=== PATIENT | female | born 1950 | race Caucasian/White ===

== ENCOUNTER → 2019-09-21 | Outpatient (CLI) | payer MEDICARE ==
--- NOTE | 2019-09-21 09:39 | BD ---
EXAMINATION TYPE: Axial Bone Density DATE OF EXAM: 09/21/2019 COMPARISON: NONE CLINICAL HISTORY: Height: 5 FT 5 3/4 IN Weight: 195 FRAX RISK QUESTIONS: Alcohol (3 or more units per day): NO Family History (Parent hip fracture): YES Glucocorticoids (More than 3mos): NO (Ex: prednisone, prednisolone, methylprednisolone, dexamethasone, and hydrocortisone). History of Fracture in Adulthood: YES Secondary Osteoporosis: 1. Type 1 Diabetes: NO 2. Hyperthyroidism: NO 3. Menopause before 45: YES 4. Malnutrition: NO 5. Chronic liver disease: NO Rheumatoid Arthritis: NO Current Tobacco Use: NO RISK FACTORS HISTORY OF: Surgery to Spine/Hip(right/left)/Wrist (right/left): NEEMA HIP REPLACEMENTS When: LT 2004 RT 2014 Family History of Osteoporosis: NO Active: YES Diet low in dairy products/other sources of calcium: NO Postmenopausal woman: TOTAL HYST AGE 38 Lost more than 2 inches in height since high school: YES MEDICATIONS: Additional Medications: ELIQUIS, ATORVASTATIN, Additional History: EXAM MEASUREMENTS: Bone mineral densitometry was performed using the [employer] System. Bone mineral density as measured about the Lumbar spine is: ----- L1-L4(G/cm2): 1.634 T Score Values are as follows: ----- L2: 3.1 ----- L3: 4.3 ----- L4: 4.9 ----- L1-L4: 3.8 BASELINE Bone mineral density about the L Wrist (g/cm2): 0.556 T Score values are as follows: -----Dist. R+U: -3.3 -----Prox. R+U: -0.1 -----Radius total: -2.0 BASELINE IMPRESSION: Normal (Values between +1 and -1 indicate normal bone mass). Consider repeating this study in 5 year s or sooner if there is some new clinical indication. NOTE: T-SCORE=SD OF THE YOUNG ADULT MEAN.
== END | disposition home or self-care (01) ==
LOC: RADBDWWP 07:15
PROVIDERS: ATTEND Internal Medicine
DX: M81.0 Age-related osteoporosis without current pathological fracture (principal)
CPT/HCPCS: 77080

== ENCOUNTER 2019-10-22 09:59 | Observation (INO) | payer MEDICARE ==
[2019-10-22] MEDS ORDERED: SODIUM CHLORIDE 0.9% 1,000 ML IV STA (10:36)
--- NOTE | 2019-10-22 10:44 | ED ---
General Adult HPI - General Source: patient, RN notes reviewed Mode of arrival: ambulatory Limitations: no limitations <Anthony Arroyo - Last Filed: 10/22/19 13:11> <Epi Carrero - Last Filed: 10/22/19 13:13> - General Chief complaint: Nausea/Vomiting/Diarrhea Stated complaint: A fib Time Seen by Provider: 10/22/19 10:15 - History of Present Illness Initial comments: This a 69-year-old female presents emergency Department chief complaint episode nausea vomiting concern for possible A. fib. Patient states that she took a [place] around 8:30 this morning states that she started vomiting around 8. Patient states that she has been taken it but spent try take it with food since her surgery on her right shoulder on Saturday. Patient states that because she vomited she decided to place her pulse ox on and check her heart rate and states it was up and down and was concerned that she was in A. fib. She's had a prior ablation and cardioversion. She also takes Eliquis. Patient states at this point she has no symptoms/chest pain, shortness breath, headache, dizziness, nausea vomiting. Denies any. Chills patient states she is presented for concerns. (Anthony Arroyo) - Related Data Home Medications Medication Instructions Recorded Confirmed Acetaminophen [Tylenol 8 Hour] 650 mg PO BID 10/22/19 10/22/19 Apixaban [Eliquis] 5 mg PO BID 10/22/19 10/22/19 Atorvastatin [Lipitor] 20 mg PO HS 10/22/19 10/22/19 Cyanocobalamin (Vitamin B-12) 1,000 mcg PO BID 10/22/19 10/22/19 [Vitamin B-12] Omeprazole [PriLOSEC] 20 mg PO BID 10/22/19 10/22/19 Vit C/E/Zn/Coppr/Lutein/Zeaxan 1 cap PO BID 10/22/19 10/22/19 [Preservision Areds 2 Softgel] cycloSPORINE 0.05% OPHTH SOLN 1 drop BOTH EYES BID 10/22/19 10/22/19 [Restasis] traZODone HCL 50 mg PO HS PRN 10/22/19 10/22/19 Allergies Allergy/AdvReac Type Severity Reaction Status Date / Time No Known Allergies Allergy Verified 10/22/19 11:13 Review of Systems ROS Other: All systems not noted in ROS Statement are negative. <Anthony Arroyo - Last Filed: 10/22/19 13:11> ROS Other: All systems not noted in ROS Statement are negative. <MaganEpi - Last Filed: 10/22/19 13:13> ROS Statement: Those systems with pertinent positive or pertinent negative responses have been documented in the HPI. Past Medical History Past Medical History: Atrial Fibrillation History of Any Multi-Drug Resistant Organisms: None Reported Past Surgical History: Ablation Past Psychological History: No Psychological Hx Reported Smoking Status: Never smoker Past Alcohol Use History: None Reported Past Drug Use History: None Reported <Anthony Arroyo - Last Filed: 10/22/19 13:11> General Exam Limitations: no limitations General appearance: alert, in no apparent distress Head exam: Present: atraumatic, normocephalic, normal inspection Eye exam: Present: normal appearance, PERRL, EOMI. Absent: scleral icterus, conjunctival injection, periorbital swelling ENT exam: Present: mucous membranes moist Respiratory exam: Present: normal lung sounds bilaterally. Absent: respiratory distress, wheezes, rales, rhonchi, stridor Cardiovascular Exam: Present: regular rate, normal rhythm, normal heart sounds. Absent: systolic murmur, diastolic murmur, rubs, gallop, clicks GI/Abdominal exam: Present: soft, normal bowel sounds. Absent: distended, tenderness, guarding, rebound, rigid Extremities exam: Present: other (Right shoulder in sling) <Anthony Arroyo - Last Filed: 10/22/19 13:11> Course <Epi Carrero - Last Filed: 10/22/19 13:13> Vital Signs 10/22/19 10/22/19 10:06 11:31 Temperature 98 F Pulse Rate 71 56 L Respiratory 18 18 Rate Blood Pressure 126/79 129/71 O2 Sat by Pulse 96 97 Oximetry - Reevaluation(s) Reevaluation #1: 10/22/19 13:12 I did discuss the findings with patient I did personally evaluate this patient. Patient has abdominal pain with evidence of elevated liver enzymes and bilirubin. Multiple small gallstones on the ultrasound. Minimal right upper quadrant pain patient be admitted I did discuss the case with Dr. Brody. Dr. Palafox and Dr. Mosley will be consulted (Epi Carrero) EKG Findings - EKG Comments: EKG Findings:: EKG performed at 10:26 normal sinus rhythm rate of 63 OK 148 QRS 80 QT/QTC 416/425 <Anthony Arroyo - Last Filed: 10/22/19 13:11> Medical Decision Making - Lab Data Result diagrams: 10/22/19 10:48 10/22/19 10:48 <Anthony Arroyo - Last Filed: 10/22/19 13:11> - Lab Data Result diagrams: 10/22/19 10:48 10/22/19 10:48 <Epi Carrero - Last Filed: 10/22/19 13:13> - Medical Decision Making Case discussed with Dr. Brody patient's primary care physician recommend antibiotics, GI and surgery consult. Patient appears to have transaminitis possibly related to acute cholecystitis. Patient will be admitted for further evaluation, pain control, nausea control. ( Anthony Arroyo) - Lab Data Lab Results 10/22/19 10/22/19 10/22/19 Range/Units 10:48 10:48 10:48 WBC 6.3 (3.8-10.6) k/uL RBC 4.13 (3.80-5.40) m/uL Hgb 13.1 (11.4-16.0) gm/dL Hct 41.4 (34.0-46.0) % MCV 100.2 H (80.0-100.0) fL MCH 31.7 (25.0-35.0) pg MCHC 31.6 (31.0-37.0) g/dL RDW 12.4 (11.5-15.5) % Plt Count 155 (150-450) k/uL Neutrophils % 71 % Lymphocytes % 20 % Monocytes % 7 % Eosinophils % 1 % Basophils % 0 % Neutrophils # 4.5 (1.3-7.7) k/uL Lymphocytes # 1.2 (1.0-4.8) k/uL Monocytes # 0.5 (0-1.0) k/uL Eosinophils # 0.1 (0-0.7) k/uL Basophils # 0.0 (0-0.2) k/uL Sodium 136 L (137-145) mmol/L Potassium 4.1 (3.5-5.1) mmol/L Chloride 97 L (98-107) mmol/L Carbon Dioxide 33 H (22-30) mmol/L Anion Gap 6 mmol/L BUN 16 (7-17) mg/dL Creatinine 0.62 (0.52-1.04) mg/dL Est GFR (CKD-EPI)AfAm >90 (>60 ml/min/1.73 sqM) Est GFR (CKD-EPI)NonAf >90 (>60 ml/min/1.73 sqM) Glucose 95 (74-99) mg/dL Calcium 8.9 (8.4-10.2) mg/dL Total Bilirubin 1.9 H (0.2-1.3) mg/dL AST 360 H (14-36) U/L ALT 187 H (4-34) U/L Alkaline Phosphatase 270 H (38-126) U/L Troponin I <0.012 (0.000-0.034) ng/mL Total Protein 6.9 (6.3-8.2) g/dL Albumin 4.1 (3.5-5.0) g/dL Lipase 70 (23-300) U/L Disposition <Anthony Arroyo - Last Filed: 10/22/19 13:11> <Epi Carrero - Last Filed: 10/22/19 13:13> Clinical Impression: Acute cholecystitis, Cholelithiasis, Transaminitis Disposition: ADMITTED IP TO THIS [facility] Condition: Fair Referrals: Selma Brody MD [Primary Care Provider] - 1-2 days
[2019-10-22 11:04] LABS: Basophils % (A) 0 %; Eosinophils # (A) 0.1 k/uL (0-0.7); Eosinophils % (A) 1 %; HCT 41.4 % (34.0-46.0); HGB 13.1 gm/dL (11.4-16.0); Lymphocytes # (A) 1.2 k/uL (1.0-4.8); Lymphocytes % (A) 20 %; MCH 31.7 pg (25.0-35.0); MCHC 31.6 g/dL (31.0-37.0); MCV 100.2 fL (80.0-100.0); Mean Platelet Volume 8.7; Monocytes # (A) 0.5 k/uL (0-1.0); Monocytes % (A) 7 %; Neutrophils # (A) 4.5 k/uL (1.3-7.7); Neutrophils % (A) 71 %; Platelet Count 155 k/uL (150-450); RBC 4.13 m/uL (3.80-5.40); RDW 12.4 % (11.5-15.5); WBC 6.3 k/uL (3.8-10.6)
[2019-10-22 11:20] LABS: ALT 187 U/L (4-34); AST 360 U/L (14-36); African American GFR (CKD) >90 (>60 ml/min/1.73 sqM); Albumin 4.1 g/dL (3.5-5.0); Alkaline Phosphatase 270 U/L (38-126); Anion Gap 6 mmol/L; Blood Urea Nitrogen 16 mg/dL (7-17); Calcium 8.9 mg/dL (8.4-10.2); Carbon Dioxide 33 mmol/L (22-30); Chloride 97 mmol/L (98-107); Glucose 95 mg/dL (74-99); Non-African American GFR(CKD) >90 (>60 ml/min/1.73 sqM); Potassium 4.1 mmol/L (3.5-5.1); Sodium 136 mmol/L (137-145); Total Bilirubin 1.9 mg/dL (0.2-1.3); Total Protein 6.9 g/dL (6.3-8.2)
[2019-10-22] MEDS ORDERED: HYDROmorphone 0.5 MG/0.5 ML SYRINGE IVP STA (12:30)
[2019-10-22] MEDS ORDERED: ONDANSETRON 4 MG/2 ML VIAL IVP STA (12:30)
--- NOTE | 2019-10-22 12:38 | US ---
EXAMINATION TYPE: US gallbladder DATE OF EXAM: 10/22/2019 COMPARISON: NONE CLINICAL HISTORY: 69-year-old female Nausea vomiting, elevated LFTs. The patient states h/o stones an d RUQ pain TECHNIQUE: Multiple sonographic images of the right upper quadrant are obtained. FINDINGS: EXAM MEASUREMENTS: Liver Length: 14.8 cm Gallbladder Wall: 0.3 cm CBD: 0.5 cm Right Kidney: 10.5 x 4.1 x 5.1 cm Pancreas: suboptimal visualization due to bowel gas. Liver: No focal lesion seen. Gallbladder: 11.6cm long, hydropic gallbladder with internal debris and multiple mobile stones Evidence for sonographic Short's sign: yes CBD: wnl Right Kidney: wnl IMPRESSION: 1. Hydropic gallbladder with internal debris and multiple calculi. Sonographic Short sign is reporte d positive. Further clinical correlation recommended for potential early acute cholecystitis. 2. No biliary ductal dilatation.
[2019-10-22] MEDS ORDERED: ONDANSETRON 4 MG/2 ML VIAL IVP PRN (13:12)
[2019-10-22] MEDS ORDERED: NALOXONE 0.4 MG/ML 1 ML VIAL IV PRN (13:12)
[2019-10-22] MEDS ORDERED: HYDROmorphone 0.5 MG/0.5 ML SYRINGE IVP PRN (13:12)
[2019-10-22] MEDS ORDERED: PIPERACILLIN-TAZOBACTAM 3.375 GM in SODIUM CHLORIDE 0.9% 100 ML IVPB STA (13:14)
[2019-10-22] MEDS: SODIUM CHLORIDE 0.9% 1,000 ML IV SCH (13:39)
[2019-10-22] MEDS: HYDROcodone/APAP 7.5-325MG 1 EACH TAB PO PRN ×2 (15:01→20:52)
[2019-10-22] MEDS: PIPERACILLIN-TAZOBACTAM 3.375 GM in SODIUM CHLORIDE 0.9% 100 ML IVPB SCH (20:53)
[2019-10-22] MEDS: traZODone HCL 50 MG TAB PO PRN (20:59)
[2019-10-22] MEDS: cycloSPORINE 0.05% OPHTH 0.4 ML DROPERETTE BOTH EYES SCH (22:40)
[2019-10-23] MEDS: SODIUM CHLORIDE 0.9% 1,000 ML IV SCH ×2 (03:39→15:51)
[2019-10-23] MEDS: HYDROcodone/APAP 7.5-325MG 1 EACH TAB PO PRN ×2 (05:14→17:27)
[2019-10-23] MEDS: PIPERACILLIN-TAZOBACTAM 3.375 GM in SODIUM CHLORIDE 0.9% 100 ML IVPB SCH ×3 (05:15→21:03)
[2019-10-23 07:38] LABS: Basophils % (A) 0 %; Eosinophils # (A) 0.1 k/uL (0-0.7); Eosinophils % (A) 1 %; HCT 38.9 % (34.0-46.0); HGB 12.4 gm/dL (11.4-16.0); Hypochromasia Slight; Lymphocytes # (A) 1.7 k/uL (1.0-4.8); Lymphocytes % (A) 26 %; MCH 32.4 pg (25.0-35.0); MCHC 31.9 g/dL (31.0-37.0); MCV 101.8 fL (80.0-100.0); Mean Platelet Volume 8.7; Monocytes # (A) 0.4 k/uL (0-1.0); Monocytes % (A) 7 %; Neutrophils # (A) 4.1 k/uL (1.3-7.7); Neutrophils % (A) 64 %; Platelet Count 143 k/uL (150-450); RBC 3.82 m/uL (3.80-5.40); RDW 12.5 % (11.5-15.5); WBC 6.5 k/uL (3.8-10.6)
[2019-10-23 07:51] LABS: ALT 145 U/L (4-34); AST 139 U/L (14-36); African American GFR (CKD) >90 (>60 ml/min/1.73 sqM); Albumin 3.6 g/dL (3.5-5.0); Alkaline Phosphatase 213 U/L (38-126); Anion Gap 7 mmol/L; Blood Urea Nitrogen 10 mg/dL (7-17); Calcium 8.6 mg/dL (8.4-10.2); Carbon Dioxide 27 mmol/L (22-30); Chloride 104 mmol/L (98-107); Glucose 92 mg/dL (74-99); Non-African American GFR(CKD) >90 (>60 ml/min/1.73 sqM); Potassium 4.4 mmol/L (3.5-5.1); Sodium 138 mmol/L (137-145); Total Bilirubin 1.7 mg/dL (0.2-1.3); Total Protein 6.1 g/dL (6.3-8.2)
[2019-10-23] MEDS: PANTOPRAZOLE 40 MG/10 ML VIAL IVP SCH (08:44)
[2019-10-23] MEDS: cycloSPORINE 0.05% OPHTH 0.4 ML DROPERETTE BOTH EYES SCH ×2 (08:45→21:03)
--- NOTE | 2019-10-23 11:55 | CONS ---
CONSULTATION DATE OF DICTATION: 10/23/2019 REQUESTING PHYSICIAN: Dr. Brody. REASON FOR CONSULTATION: Elevated LFTs and mild jaundice. HISTORY OF PRESENT ILLNESS: The patient is a 69-year-old pleasant white female admitted to hospital after having an episode of some chest discomfort,. followed by nausea,. vomiting that happened yesterday. She has history of atrial fibrillation and has been on Eliquis for the last one year duration. She felt she was having some startle like feeling in her chest area and became concerned, hence came in to the emergency room and subsequently was noted to have mild elevation of serum transaminases and bilirubin up to 1.9 and hence we are consulted in regard to this issue. She denies any abdominal pain. She never had these symptoms in the past. She did have ultrasound of the abdomen done that showed evidence of gallstones but no biliary ductal dilation. Labs in the emergency room did show a bilirubin of 1.9. ALT and AST are 360 and 187 respectively. Alkaline phosphatase is 270. PAST MEDICAL HISTORY: Significant for atrial fibrillation, on Eliquis, the last dose was 2 nights ago, history of hypertension, hyperlipidemia, anxiety, depression. MEDICATIONS: At home include Eliquis, trazodone, cyclosporine, Tylenol, Lipitor, omeprazole, and vitamin C. ALLERGIES: None. SOCIAL HISTORY: No smoking, no alcohol use. PAST SURGICAL HISTORY: Cardiac ablation. REVIEW OF SYSTEMS: CARDIOPULMONARY: No chest pain or shortness of breath. GENITOURINARY: No dysuria or hematuria. MUSCULOSKELETAL: Unremarkable. SKIN: Unremarkable. ENDOCRINE: Unremarkable. PSYCHIATRIC: Unremarkable. NEUROLOGY: Unremarkable. ENT: Vision unremarkable. GI: As mentioned above. ENT: Vision unremarkable. CONSTITUTIONAL: No recent weight loss. No fever, chills, night sweats. PHYSICAL EXAMINATION: She appears comfortable. In no apparent distress. Vital signs are stable. Blood pressure is 130/70, pulse rate 56, temperature 98.3. HEENT: Examination unremarkable, conjunctivae are pink, sclerae nonicteric. Oral cavity no lesions. NECK: No JVD. No lymph node enlargement. CHEST: Clear to auscultation. HEART: Regular rate and rhythm. ABDOMEN: Soft, it was nontender, nondistended. Bowel sounds are positive, no organomegaly. EXTREMITIES: No pedal edema. SKIN: No rashes. NEUROLOGIC: Alert and oriented x3. No focal deficits. LABS: At the time of admission to the hospital: WBC 6.3, hemoglobin 13.1, platelets normal. Basic metabolic panel is normal. T bilirubin 1.9, AST 360, ALT 187, alkaline phosphatase 270. Repeat labs from today T bilirubin 1.7, AST 139, ALT 145, alkaline phosphatase is 213. IMPRESSION: 1. This is a lady who presented to the hospital with an episode of nausea, vomiting and some vague chest discomfort that happened yesterday evening, but no abdominal pain. In the ER was noted to have elevated serum transaminases and T bilirubin up to 1.9. She did have ultrasound of the gallbladder that showed evidence of gallstones but no biliary ductal dilation. At this time it is unclear whether we are dealing with symptomatic gallstones and choledocholithiasis or other etiology. 2. History of gastric bypass surgery. 3. History of atrial fibrillation on Eliquis, last dose was 2 nights ago. RECOMMENDATIONS: 1. Repeat LFTs which revealed minimal improvement in the serum transaminases as well as bilirubin up to 1.7. At this time, I had a discussion with Dr. Palafox and will proceed with an MRCP to see for any evidence of choledocholithiasis. 2. Clear liquid diet. 3. Await MRCP results. 4. Will follow with you closely. Thank you for this consultation. NASIMAL / VALARIEN: [id number] /
--- NOTE | 2019-10-23 12:16 | P.GSCN ---
History of Present Illness Consult date: 10/23/19 Reason for Consult: Cholecystitis History of present illness: 69-year-old female came to the hospital yesterday with some sensation of arrhythmia. History of A. fib in the past. States she checked her pulse using a home environmental monitoring technician and was concerned that she was in A. fib. She admitted she had some mild chest discomfort. She also had a spontaneous episode of emesis. When she came to the hospital she was noted to have elevated gunn saminases and bilirubin. Patient was concerned that her skin may be slightly yellowish in color although bilirubin 1.9. Ultrasound showed gallstones with some gallbladder distention. Denied abdominal pain. No history of similar events. Patient is on eloquis for paroxysmal A. fib. Patient with history of previous laparoscopic Lashay-en-Y gastric bypass. Repeat labs today improved. Patient is anxious to go home if possible. She was seen by GI. MRCP has been ordered. Denies weight loss. Review of Systems The patient denies any acute changes in vision or hearing, no dysphagia or odynophagia, no chest pain or shortness of breath, no dysuria or hematuria, no headache, no runny nose, no rectal bleeding or melena, no unexplained weight loss Past Medical History Past Medical History: Atrial Fibrillation, GERD/Reflux, Hyperlipidemia, Osteoarthritis (OA), Pneumonia Additional Past Medical History / Comment(s): Afib with cardiac ablation/CVN, gallstones, arthritis in multiple joints, insomnia, pneumonia years ago, UTI History of Any Multi-Drug Resistant Organisms: None Reported Past Surgical History: Ablation, Bariatric Surgery, Cardiac Ablation, Hysterectomy, Joint Replacement, Orthopedic Surgery, Tonsillectomy Additional Past Surgical History / Comment(s): Recent R shoulder rotator cuff repair, L shoulder rotator cuff repair, L shoulder fracture with surgery, bilateral total hip arthroplasties, jaw surgery for bite correction, CVN, gastric bypass, EGD, colonoscopy, bilateral cataract removals/lens implants Past Anesthesia/Blood Transfusion Reactions: No Reported Reaction Smoking Status: Never smoker - Past Family History Father Family Medical History: Congestive Heart Failure (CHF), Musculoskeletal Disorder, Neurologic Disorder Additional Family Medical History / Comment(s): Father had parkinsons. Mother Family Medical History: Hyperlipidemia, Hypertension Medications and Allergies Home Medications Medication Instructions Recorded Confirmed Type Acetaminophen [Tylenol 8 Hour] 650 mg PO BID 10/22/19 10/22/19 History Apixaban [Eliquis] 5 mg PO BID 10/22/19 10/22/19 History Atorvastatin [Lipitor] 20 mg PO HS 10/22/19 10/22/19 History Cyanocobalamin (Vitamin B-12) 1,000 mcg PO BID 10/22/19 10/22/19 History [Vitamin B-12] Omeprazole [PriLOSEC] 20 mg PO BID 10/22/19 10/22/19 History Vit C/E/Zn/Coppr/Lutein/Zeaxan 1 cap PO BID 10/22/19 10/22/19 History [Preservision Areds 2 Softgel] cycloSPORINE 0.05% OPHTH SOLN 1 drop BOTH EYES BID 10/22/19 10/22/19 History [Restasis] traZODone HCL 50 mg PO HS PRN 10/22/19 10/22/19 History Allergies Allergy/AdvReac Type Severity Reaction Status Date / Time No Known Allergies Allergy Verified 10/22/19 11:13 Surgical - Exam Vital Signs Temp Pulse Resp BP Pulse Ox 98 F 71 18 126/79 96 10/22/19 10:06 10/22/19 10:06 10/22/19 10:06 10/22/19 10:06 10/22/19 10:06 Physical exam: General: Well-developed, well-nourished HEENT: Normocephalic, sclerae nonicteric Abdomen: Nontender, nondistended Extremities: No edema Neuro: Alert and oriented Results - Labs 10/23/19 07:25 10/23/19 07:25 Abnormal Lab Results - Last 24 Hours (Table) 10/23/19 10/23/19 Range/Units 07:25 07:25 MCV 101.8 H (80.0-100.0) fL Plt Count 143 L (150-450) k/uL Total Bilirubin 1.7 H (0.2-1.3) mg/dL AST 139 H (14-36) U/L ALT 145 H (4-34) U/L Alkaline Phosphatase 213 H (38-126) U/L Total Protein 6.1 L (6.3-8.2) g/dL Diabetes panel 10/23/19 Range/Units 07:25 Sodium 138 (137-145) mmol/L Potassium 4.4 (3.5-5.1) mmol/L Chloride 104 (98-107) mmol/L Carbon Dioxide 27 (22-30) mmol/L BUN 10 (7-17) mg/dL Creatinine 0.59 (0.52-1.04) mg/dL Glucose 92 (74-99) mg/dL Calcium 8.6 (8.4-10.2) mg/dL AST 139 H (14-36) U/L ALT 145 H (4-34) U/L Alkaline Phosphatase 213 H (38-126) U/L Total Protein 6.1 L (6.3-8.2) g/dL Albumin 3.6 (3.5-5.0) g/dL Calcium panel 10/23/19 Range/Units 07:25 Calcium 8.6 (8.4-10.2) mg/dL Albumin 3.6 (3.5-5.0) g/dL Pituitary panel 10/23/19 Range/Units 07:25 Sodium 138 (137-145) mmol/L Potassium 4.4 (3.5-5.1) mmol/L Chloride 104 (98-107) mmol/L Carbon Dioxide 27 (22-30) mmol/L BUN 10 (7-17) mg/dL Creatinine 0.59 (0.52-1.04) mg/dL Glucose 92 (74-99) mg/dL Calcium 8.6 (8.4-10.2) mg/dL Adrenal panel 10/23/19 Range/Units 07:25 Sodium 138 (137-145) mmol/L Potassium 4.4 (3.5-5.1) mmol/L Chloride 104 (98-107) mmol/L Carbon Dioxide 27 (22-30) mmol/L BUN 10 (7-17) mg/dL Creatinine 0.59 (0.52-1.04) mg/dL Glucose 92 (74-99) mg/dL Calcium 8.6 (8.4-10.2) mg/dL Total Bilirubin 1.7 H (0.2-1.3) mg/dL AST 139 H (14-36) U/L ALT 145 H (4-34) U/L Alkaline Phosphatase 213 H (38-126) U/L Total Protein 6.1 L (6.3-8.2) g/dL Albumin 3.6 (3.5-5.0) g/dL Assessment and Plan (1) Acute cholecystitis Narrative/Plan: 69-year-old female with ultrasound suggesting gallstones and presence of cholecystitis. Patient however asymptomatic. Given the elevated liver enzymes recommend MRCP to rule out biliary obstruction. If that study is normal. The labs are improving I would be comfortable with discharge and outpatient follow- up. Current Visit: Yes Status: Acute Code(s): K81.0 - ACUTE CHOLECYSTITIS SNOMED Code(s): 81218486
[2019-10-23] MEDS: traZODone HCL 50 MG TAB PO PRN (21:01)
--- NOTE | 2019-10-23 21:51 | P.HPIM ---
History of Present Illness H&P Date: 10/22/19 Chief Complaint: Acute cholecystitis/possible CBD stone This is a 69 year old female with a previous medical history significant for hyperlipidemia, paroxysmal atrial fibrillation and GERD with a prior history of known gallstones , had labs done last week that showed slight elevation in her AST and ALT and was seen in my office for pre-Op clearance for right arthroscopic shoulder surgery that was completely successfully last week, patient was in her usual stet of health till yesterday when she was feeling somewhat full in her stomach with mild nausea, yesterday she was on the phone and she suddenly threw up, and she was feeling palpitations in her chest, she denied any chest pain or shortness of breath but because of heart history she decided to come to the ER at [facility] where she was found to have elevated LFTS and bilirubin and she underwent US of the abdomen that showed hydrops gallbladder, she was started on IVF and IV ABX in the form of Zosyn and she was admitted to the hospital for evaluation by GI and general surgery, she will need to have ERCP and Lap-choles down the line, she lisa be taken off her Eliquis awaiting both GI and surgery input. Review of Systems Constitutional: Denies anorexia, Denies chronic headaches, Denies chronic pain, Denies lethargy, Denies weakness, Denies weight gain Eyes: denies blurred vision, denies bulging eye, denies decreased vision Ears, nose, mouth and throat: Denies dysphagia, Denies neck lump, Denies sore throat Cardiovascular: Denies chest pain, Denies decreased exercise tolerance, Denies lightheadedness, Denies rapid heart beat, Denies shortness of breath, Denies syncope Respiratory: Denies congestion, Denies cough, Denies cough with sputum, Denies home oxygen, Denies sleep apnea, Denies snoring, Denies wheezing Gastrointestinal: Reports abdominal pain, Reports nausea, Reports vomiting, Denies BRBPR, Denies change in bowel habits, Denies excessive gas, Denies heartburn, Denies hematemesis, Denies loss of appetite, Denies melena Genitourinary: Denies dysuria, Denies hematuria Menstruation: Reports postmenopausal Musculoskeletal: Denies myalgias Musculoskeletal: absent: ankle pain, ankle stiffness, ankle swelling, elbow pain, elbow stiffness, elbow swelling, foot pain, foot stiffness, foot swelling, hand pain, hand stiffness, hand swelling, hip pain, hip stiffness, hip swelling, knee pain, knee stiffness, knee swelling, shoulder pain, shoulder stiffness, shoulder swelling, wrist pain, wrist stiffness, wrist swelling Integumentary: Denies pruritus, Denies rash Neurological: Denies numbness, Denies weakness Psychiatric: Denies anxiety, Denies depression Endocrine: Denies fatigue, Denies weight change Past Medical History Past Medical History: Atrial Fibrillation, GERD/Reflux, Hyperlipidemia, Osteoarthritis (OA), Pneumonia Additional Past Medical History / Comment(s): Afib with cardiac ablation/CVN, gallstones, arthritis in multiple joints, insomnia, pneumonia years ago, UTI History of Any Multi-Drug Resistant Organisms: None Reported Past Surgical History: Ablation, Bariatric Surgery, Cardiac Ablation, Hysterectomy, Joint Replacement, Orthopedic Surgery, Tonsillectomy Additional Past Surgical History / Comment(s): Recent R shoulder rotator cuff repair, L shoulder rotator cuff repair, L shoulder fracture with surgery, bilateral total hip arthroplasties, jaw surgery for bite correction, CVN, gastric bypass, EGD, colonoscopy, bilateral cataract removals/lens implants Past Anesthesia/Blood Transfusion Reactions: No Reported Reaction Smoking Status: Never smoker - Past Family History Father Family Medical History: Congestive Heart Failure (CHF) (Father at the age of 78 from CHF and had Parkinson.), Musculoskeletal Disorder, Neurologic Di sorder Additional Family Medical History / Comment(s): Father had parkinsons. Mother Family Medical History: Coronary Artery Disease (CAD) (Mother at the age of 92 from CAD.), Hyperlipidemia, Hypertension Brother(s) Family Medical History: Myocardial Infarction (AL) (patient had 3 brothers one at the age of 62 from AL.) Sister(s) Family Medical History: No Reported History (one sister at the age of 32 in MVA after she was hit by a drunk milk truck driver. ) Daughter(s) Family Medical History: No Reported History (one step daughter.) Son(s) Family Medical History: No Reported History (one step son.) Medications and Allergies Home Medications Medication Instructions Recorded Confirmed Type Acetaminophen [Tylenol 8 Hour] 650 mg PO BID 10/22/19 10/22/19 History Apixaban [Eliquis] 5 mg PO BID 10/22/19 10/22/19 History Cyanocobalamin (Vitamin B-12) 1,000 mcg PO BID 10/22/19 10/22/19 History [Vitamin B-12] Omeprazole [PriLOSEC] 20 mg PO BID 10/22/19 10/22/19 History Vit C/E/Zn/Coppr/Lutein/Zeaxan 1 cap PO BID 10/22/19 10/22/19 History [Preservision Areds 2 Softgel] cycloSPORINE 0.05% OPHTH SOLN 1 drop BOTH EYES BID 10/22/19 10/22/19 History [Restasis] traZODone HCL 50 mg PO HS PRN 10/22/19 10/22/19 History HYDROcodone/APAP 7.5-325MG [Norman 1 each PO Q6H PRN #12 tab 10/23/19 Rx 7.5-325] Allergies Allergy/AdvReac Type Severity Reaction Status Date / Time No Known Allergies Allergy Verified 10/22/19 11:13 Physical Exam Vitals: Vital Signs Temp Pulse Pulse Resp BP BP Pulse Ox 10/22/19 15:17 98.1 F 67 16 138/79 96 10/22/19 15:03 98.6 F 73 18 153/74 100 10/22/19 11:31 56 L 18 129/71 97 10/22/19 10:06 98 F 71 18 126/79 96 Intake and Output 10/22/19 10/22/19 10/22/19 06:59 14:59 22:59 Other: Weight 87.997 kg Physical examination: HEENT: head is atraumatic normocephalic pupils were equal round reactive to light and accommodations extre ocular muscle movements were intact. Neck: supple, no JVP. Chest: decrease breath sounds at the bases with few ronchi no expiratory wheezes, otherwise clear to auscultation bilaterally. Heart: first heart sound is depressed, second heart sound is normal, bradycardic, there is no MC 2/6 located at the LSB. Abdomen: soft mild tenderness in the right upper quadrant no rebound or guarding positive bowel sounds. Extremities: there is no edema no calf tenderness DP + 2 bilaterally. Neurologic examination: patient is awake and alert and oriented X 3 CN II-XII are grossly intact, muscle power is 4/5 in left upper and bilateral lower extremities, right upper extremity with decrease range of motion post right shoulder surgery. Results CBC & Chem 7: 10/23/19 07:25 10/23/19 07:25 Labs: Abnormal Lab Results - Last 24 Hours (Table) 10/22/19 10/22/19 Range/Units 10:48 10:48 MCV 100.2 H (80.0-100.0) fL Sodium 136 L (137-145) mmol/L Chloride 97 L (98-107) mmol/L Carbon Dioxide 33 H (22-30) mmol/L Total Bilirubin 1.9 H (0.2-1.3) mg/dL AST 360 H (14-36) U/L ALT 187 H (4-34) U/L Alkaline Phosphatase 270 H (38-126) U/L Thrombosis Risk Factor Assmnt - DVT/VTE Prophylaxis DVT/VTE Prophylaxis: Pharmacologic Prophylaxis ordered, Mechanical Prophylaxis ordered - Choose All That Apply Any of the Below Risk Factors Present?: Yes Each Factor Represents 1 point: Obesity (BMI >25) Other Risk Factors: Yes Each Risk Factor Represents 2 Points: Age 61-74 years Other congenital or acquired thrombophilia - If yes, enter type in comment: No Thrombosis Risk Factor Assessment Total Risk Factor Score: 3 Thrombosis Risk Factor Assessment Level: Moderate Risk Assessment and Plan Assessment: Assessment and plan: !. acute cholecystitis with possibe CBD stone that had passed likely. we will start IVF, Zosyn 3.375 gr IVPB Q 8 hours, we will continue with Zofran 4 mg IVP q 6 h as needed, we will continue with Protonix 40 mg IVP daily, surgery consult and GI consult for ,ERCP Vs MRCP, we will hold off Eliquis for planned procedure / Surgery. 2. Elevated LFTs with elevated bilirubin likely related to acute cholecystitis Vs CBD stone that has passed. we will continue with bowel rest, IVF, anti- emetic, repeat CMP in the AM. 3. Paroxysmal atrial fibrillation. currently in sinus rhythm. we will hold off Eliquis in anticipation off ERCP/ Lap-Marianne. 4. Hyperlipidemia. we will continue with Lipitor 20 mg orally daily. 5.GERD. we will continue with Protonix 40 mg IVP daily. 6. Insomnia. we will continue with Trazodone 50 mg orally daily. 7. Dry eye syndromes. we will continue with current eye drops. 8. Post right shoulder arthroscopic surgery. stable. 9. DVT Prophylaxis. we will hold off Eliquis and we will start Lovenox 40 mg sc daily/ 10.GI prophylaxis. we will continue with PPI. 11. Admits to inpatient, estimated length of stay 2 midnights. 12. Full code.
--- NOTE | 2019-10-23 21:55 | P.PN ---
Subjective Progress Note Date: 10/23/19 This is a 69 year old female with a previous medical history significant for hyperlipidemia, paroxysmal atrial fibrillation and GERD with a prior history of known gallstones , had labs done last week that showed slight elevation in her AST and ALT and was seen in my office for pre-Op clearance for right arthroscopic shoulder surgery that was completely successfully last week, patient was in her usual stet of health till yesterday when she was feeling somewhat full in her stomach with mild nausea, yesterday she was on the phone and she suddenly threw up, and she was feeling palpitations in her chest, she denied any chest pain or shortness of breath but because of heart history she decided to come to the ER at [facility] where she was found to have elevated LFTS and bilirubin and she underwent US of the abdomen that showed hydrops gallbladder, she was started on IVF and IV ABX in the form of Zosyn and she was admitted to the hospital for evaluation by GI and general surgery, she will need to have ERCP and Lap-choles down the line, she lisa be taken off her Eliquis awaiting both GI and surgery input. 10/22: patient is doing better, she denies any chest pain or shortness of breath, she denies any abdominal pain, nausea, vomting or diarrhea, she has no new complaints, her liver enzymes are better, she was seen by GI and deferred to surgery possible Lap-singh, patient is tolerating her clear liquids well, she was seen by surgery and it was recommended to have MRCP in the hopsital prior to her discharge and then she can be discharged home and go back on her eliquis 5 mg orally bid, as to stop it 48 hours prior to her surgery. Objective - Vital Signs Vital signs: Vital Signs Temp 98.4 F 10/23/19 21:25 Pulse 63 10/23/19 21:25 Resp 17 10/23/19 21:25 BP 95/62 10/23/19 21:25 Pulse Ox 96 10/23/19 21:25 Intake & Output 10/23/19 10/23/19 10/24/19 06:59 18:59 06:59 Intake Total 790 100 340 Balance 790 100 340 Intake: Intake, IV Titration 550 100 100 Amount Piperacillin-Tazobactam 3 100 100 100 .375 gm In Sodium Chloride 0.9% 100 ml @ 25 mls/hr IVPB Q8H [facility] Rx#: [id number] Sodium Chloride 0.9% 1, 450 000 ml @ 75 mls/hr IV . [id number] [facility] Rx#:[id number] Oral 240 240 Other: Voiding Method Toilet Toilet Toilet # Voids 1 1 - Exam Review of Systems Constitutional: Denies anorexia, Denies chronic headaches, Denies chronic pain, Denies lethargy, Denies weakness, Denies weight gain Eyes: denies blurred vision, denies bulging eye, denies decreased vision Ears, nose, mouth and throat: Denies dysphagia, Denies neck lump, Denies sore throat Cardiovascular: Denies chest pain, Denies decreased exercise tolerance, Denies lightheadedness, Denies rapid heart beat, Denies shortness of breath, Denies syncope Respiratory: Denies congestion, Denies cough, Denies cough with sputum, Denies home oxygen, Denies sleep apnea, Denies snoring, Denies wheezing Gastrointestinal: Reports abdominal pain, Reports nausea, Reports vomiting, Denies BRBPR, Denies change in bowel habits, Denies excessive gas, Denies heartburn, Denies hematemesis, Denies loss of appetite, Denies melena Genitourinary: Denies dysuria, Denies hematuria Menstruation: Reports postmenopausal Musculoskeletal: Denies myalgias Musculoskeletal: absent: ankle pain, ankle stiffness, ankle swelling, elbow pain, elbow stiffness, elbow swelling, foot pain, foot stiffness, foot swelling, hand pain, hand stiffness, hand swelling, hip pain, hip stiffness, hip swelling, knee pain, knee stiffness, knee swelling, shoulder pain, shoulder stiffness, shoulder swelling, wrist pain, wrist stiffness, wrist swelling Integumentary: Denies pruritus, Denies rash Neurological: Denies numbness, Denies weakness Psychiatric: Denies anxiety, Denies depression Endocrine: Denies fatigue, Denies weight change Physical examination: HEENT: head is atraumatic normocephalic pupils were equal round reactive to light and accommodations extre ocular muscle movements were intact. Neck: supple, no JVP. Chest: decrease breath sounds at the bases with few ronchi no expiratory wheezes, otherwise clear to auscultation bilaterally. Heart: first heart sound is depressed, second heart sound is normal, bradycardic, there is no MC 2/6 located at the LSB. Abdomen: soft mild tenderness in the right upper quadrant no rebound or guarding positive bowel sounds. Extremities: there is no edema no calf tenderness DP + 2 bilaterally. Neurologic examination: patient is awake and alert and oriented X 3 CN II-XII are grossly intact, muscle power is 4/5 in left upper and bilateral lower extremities, right upper extremity with decrease range of motion post right shoulder surgery. - Labs CBC & Chem 7: 10/23/19 07:25 10/23/19 07:25 Labs: Abnormal Lab Results - Last 24 Hours (Table) 10/23/19 10/23/19 Range/Units 07:25 07:25 MCV 101.8 H (80.0-100.0) fL Plt Count 143 L (150-450) k/uL Total Bilirubin 1.7 H (0.2-1.3) mg/dL AST 139 H (14-36) U/L ALT 145 H (4-34) U/L Alkaline Phosphatase 213 H (38-126) U/L Total Protein 6.1 L (6.3-8.2) g/dL Microbiology - Last 24 Hours (Table) 10/22/19 13:30 Blood Culture - Preliminary Blood No Growth after 24 hours Assessment and Plan Assessment: Assessment and plan: !. acute cholecystitis with possibe CBD stone that had passed likely. we will start IVF, Zosyn 3.375 gr IVPB Q 8 hours, we will continue with Zofran 4 mg IVP q 6 h as needed, we will continue with Protonix 40 mg IVP daily, surgery consult and GI consult for ,ERCP Vs MRCP, we will hold off Eliquis for planned procedure / Surgery. 2. Elevated LFTs with elevated bilirubin likely related to acute cholecystitis Vs CBD stone that has passed. we will continue with bowel rest, IVF, anti- emetic, repeat CMP in the AM. 3. Paroxysmal atrial fibrillation. currently in sinus rhythm. we will hold off Eliquis in anticipation off ERCP/ Lap-Singh. 4. Hyperlipidemia. we will continue with Lipitor 20 mg orally daily. 5.GERD. we will continue with Protonix 40 mg IVP daily. 6. Insomnia. we will continue with Trazodone 50 mg orally daily. 7. Dry eye syndromes. we will continue with current eye drops. 8. Post right shoulder arthroscopic surgery. stable. 9. DVT Prophylaxis. we will hold off Eliquis and we will start Lovenox 40 mg sc daily/ 10.GI prophylaxis. we will continue with PPI. 11. Admits to inpatient, estimated length of stay 2 midnights. 12. Full code.
[2019-10-24] MEDS: HYDROcodone/APAP 7.5-325MG 1 EACH TAB PO PRN ×3 (01:07→15:13)
[2019-10-24] MEDS: PIPERACILLIN-TAZOBACTAM 3.375 GM in SODIUM CHLORIDE 0.9% 100 ML IVPB SCH ×2 (05:01→14:25)
[2019-10-24 06:10] VITALS: RESP 15
[2019-10-24] MEDS ORDERED: LORazepam 2 MG/ML INJ IV PRN (08:00)
[2019-10-24] MEDS: cycloSPORINE 0.05% OPHTH 0.4 ML DROPERETTE BOTH EYES SCH (09:15)
[2019-10-24] MEDS: PANTOPRAZOLE 40 MG/10 ML VIAL IVP SCH (09:16)
[2019-10-24 10:36] LABS: Basophils % (A) 0 %; Eosinophils # (A) 0.1 k/uL (0-0.7); Eosinophils % (A) 2 %; HCT 38.7 % (34.0-46.0); HGB 12.1 gm/dL (11.4-16.0); Hypochromasia Slight; Lymphocytes # (A) 1.2 k/uL (1.0-4.8); Lymphocytes % (A) 28 %; MCH 31.9 pg (25.0-35.0); MCHC 31.2 g/dL (31.0-37.0); Mean Platelet Volume 8.8; Monocytes # (A) 0.4 k/uL (0-1.0); Monocytes % (A) 8 %; Neutrophils # (A) 2.6 k/uL (1.3-7.7); Neutrophils % (A) 60 %; Platelet Count 142 k/uL (150-450); RBC 3.79 m/uL (3.80-5.40); RDW 12.3 % (11.5-15.5); WBC 4.4 k/uL (3.8-10.6)
[2019-10-24 10:50] LABS: ALT 96 U/L (4-34); AST 69 U/L (14-36); African American GFR (CKD) >90 (>60 ml/min/1.73 sqM); Albumin 3.5 g/dL (3.5-5.0); Alkaline Phosphatase 179 U/L (38-126); Anion Gap 3 mmol/L; Blood Urea Nitrogen 6 mg/dL (7-17); Calcium 8.7 mg/dL (8.4-10.2); Carbon Dioxide 31 mmol/L (22-30); Chloride 105 mmol/L (98-107); Glucose 98 mg/dL (74-99); Non-African American GFR(CKD) >90 (>60 ml/min/1.73 sqM); Potassium 4.4 mmol/L (3.5-5.1); Sodium 139 mmol/L (137-145); Total Bilirubin 1.2 mg/dL (0.2-1.3); Total Protein 5.9 g/dL (6.3-8.2)
--- NOTE | 2019-10-24 12:20 | P.PN ---
Subjective Progress Note Date: 10/24/19 Principal diagnosis: Cholecystitis Patient doing well today. MRCP was unable to be performed yesterday because the machine was not functioning. She is going down as we speak to get the MRCP performed. Anticipate discharge following that. No pain. Today's liver enzymes improved further. Objective - Vital Signs Vital signs: Vital Signs Temp 97.3 F L 10/24/19 06:09 Pulse 41 L 10/24/19 06:09 Resp 15 10/24/19 06:09 BP 107/51 10/24/19 06:09 Pulse Ox 96 10/24/19 06:09 Intake & Output 10/23/19 10/24/19 10/24/19 18:59 06:59 18:59 Intake Total 100 800 Balance 100 800 Intake: Intake, IV Titration 100 320 Amount Piperacillin-Tazobactam 3 100 200 .375 gm In Sodium Chloride 0.9% 100 ml @ 25 mls/hr IVPB Q8H [facility] Rx#: [id number] Sodium Chloride 0.9% 1, 120 000 ml @ 75 mls/hr IV . [id number] [facility] Rx#:[id number] Oral 480 Other: Voiding Method Toilet Toilet Toilet # Voids 1 - Exam Abdomen: Soft, nontender, nondistended - Labs CBC & Chem 7: 10/24/19 10:19 10/24/19 10:19 Labs: Abnormal Lab Results - Last 24 Hours (Table) 10/24/19 10/24/19 Range/Units 10:19 10:19 RBC 3.79 L (3.80-5.40) m/uL MCV 102.0 H (80.0-100.0) fL Plt Count 142 L (150-450) k/uL Carbon Dioxide 31 H (22-30) mmol/L BUN 6 L (7-17) mg/dL AST 69 H (14-36) U/L ALT 96 H (4-34) U/L Alkaline Phosphatase 179 H (38-126) U/L Total Protein 5.9 L (6.3-8.2) g/dL Microbiology - Last 24 Hours (Table) 10/22/19 13:30 Blood Culture - Preliminary Blood No Growth after 24 hours Assessment and Plan (1) Acute cholecystitis Narrative/Plan: Patient doing better. May discharge after MRCP. Outpatient follow-up planned. Current Visit: Yes Status: Acute Code(s): K81.0 - ACUTE CHOLECYSTITIS SNOMED Code(s): 37607819
[2019-10-24] MEDS: SODIUM CHLORIDE 0.9% 1,000 ML IV SCH (12:21)
--- NOTE | 2019-10-24 12:37 | PN ---
PROGRESS NOTE DATE OF SERVICE: 10/24/2019 The patient is a 69-year-old pleasant white female admitted to the hospital with mild chest discomfort and one episode of nausea and vomiting two days ago. The liver enzymes were elevated with a bilirubin of 2.1 and slight elevation of ALT and AST in the range of 300. She did have ultrasound that showed gallstones but no biliary ductal dilation. Because of suspicion for CBD stone, she was scheduled for an MRCP yesterday but admission was broke and she is rescheduled for today. In the meantime, she is doing well, no symptoms. PHYSICAL EXAMINATION: Appears comfortable. VITAL SIGNS: Stable. Blood pressure 107/51, pulse rate 41, temperature 97.3. HEENT examination unremarkable. Conjunctivae pink, sclerae anicteric. Oral cavity no lesions. NECK: No JVD or lymph node enlargement. CHEST was clear to auscultation. HEART: Regular rate and rhythm. ABDOMEN: Soft. Bowel sounds are positive. No organomegaly. EXTREMITIES: No pedal edema. NEUROLOGIC: Alert and oriented x3. No focal deficits. LABS: From today WBC 4.4, hemoglobin 12.1, platelets 142. AST and ALT are 69 and 96 respectively. T-bilirubin 1.2 and alkaline phosphatase is 179. IMPRESSION: Elevated liver function tests and mild jaundice. Labs are improving. The patient had minimal chest discomfort followed by nausea, vomiting two days ago, now she is asymptomatic. Serum transaminases were elevated which are gradually improving. Most likely she may have had a CBD stone that she passed spontaneously. Today bilirubin is normalized at 1.2 and ALT and AST are 69 and 96 respectively. RECOMMENDATIONS: 1. The patient is scheduled for an MRCP this afternoon and if it is negative, she can be discharged home with outpatient followup with Dr. Palafox. I have requested for CA 99. 2. Advance to regular diet following the MRCP. Thank you for this consultation. MMODL / IJN: [id number] /
--- NOTE | 2019-10-24 12:48 | MR ---
EXAMINATION TYPE: MR MRCP DATE OF EXAM: 10/24/2019 COMPARISON: Ultrasound 10/22/2019 HISTORY: 69-year-old female Elevated LFTs, rule out common bile duct stone TECHNIQUE: Multiplanar, multisequence images of the abdomen were acquired without IV contrast. Highly T2 weighted images of the pancreatic or biliary system were obtained for MRCP. Rotational 3-D recons tructions generated on a dedicated independent workstation. FINDINGS: Liver normal size at 15.8 cm. No focal T2-weighted liver lesion seen. Out of phase T1-weigh stephan images show slight loss that is still within a standard deviation. Findings suggest that there is no significant fatty infiltration. Gallbladder again identified hydropic measuring up to 5.6 cm wide. There is wall thickening up to 6 m m. Facetted gallstones dependent in the fundus of the gallbladder measuring up to 1.4 cm. The bile duct remains normal caliber at 4.6 mm. Normal distal tapering. No intrahepatic biliary ducta l dilatation. On MRCP images, bile duct caliber is measured at 5 mm. No suspicious filling defect is seen. On this noncontrast study, adrenal glands, kidneys, spleen, and pancreas show no gross abnormality. Trace right effusion. No evident upper abdominal lymphadenopathy, ascites fluid, or gross bowel abnormality seen. IMPRESSION: 1. Continued hydropic change of the gallbladder now with wall thickening up to 6 mm. Underlying singh lithiasis. Findings highly suggestive of acute cholecystitis. Clinically correlate. 2. Bile duct is normal caliber measuring up to 5 mm without any suspicious filling defect. 3. New trace right pleural effusion.
[2019-10-24 14:28] VITALS: BP 112/53; PULSE 53; TEMP 96.9
== END 2019-10-24 18:02 | disposition home or self-care (01) ==
LOC: EC 09:59 → 6NMEDSUR 13:23
PROVIDERS: ADMIT Internal Medicine; ATTEND Internal Medicine
DX: K80.62 Calculus of gallbladder and bile duct with acute cholecystitis without obstruction (principal); R74.8 Abnormal levels of other serum enzymes; I48.0 Paroxysmal atrial fibrillation; R19.7 Diarrhea, unspecified; E78.5 Hyperlipidemia, unspecified; K21.9 Gastro-esophageal reflux disease without esophagitis; M19.90 Unspecified osteoarthritis, unspecified site; G47.00 Insomnia, unspecified; I10 Essential (primary) hypertension; F41.9 Anxiety disorder, unspecified; F32.9 Major depressive disorder, single episode, unspecified; E66.9 Obesity, unspecified; Z68.31 Body mass index [BMI] 31.0-31.9, adult; H04.123 Dry eye syndrome of bilateral lacrimal glands; K82.8 Other specified diseases of gallbladder; R79.89 Other specified abnormal findings of blood chemistry; Z90.710 Acquired absence of both cervix and uterus; Z96.643 Presence of artificial hip joint, bilateral; Z79.01 Long term (current) use of anticoagulants; Z79.899 Other long term (current) drug therapy; Z87.440 Personal history of urinary (tract) infections; Z87.01 Personal history of pneumonia (recurrent); Z98.84 Bariatric surgery status; Z82.0 Family history of epilepsy and other diseases of the nervous system; Z82.49 Family history of ischemic heart disease and other diseases of the circulatory system
CPT/HCPCS: 96376; 96361 ×3; 96366 ×2; 96375 ×3; 96365; 99285; 36415; 93005; 80053 ×3; 83690; 84484; 85025 ×3; 87040; 86301; 76705; 74181; G0378 ×3; J2543 ×3; J2060; J2405; C9113 ×2; J1170

== ENCOUNTER → 2019-10-29 | Outpatient (CLI) | payer MEDICARE ==
[2019-10-29 18:50] LABS: Anion Gap 8.3 mmol/L (4.00-12.00); BUN/Creat Ratio 17.14 Ratio (12.00-20.00); Carbon Dioxide 31.7 mmol/L (21.6-31.8); Potassium 4.3 mmol/L (3.5-5.5)
[2019-10-29 18:51] LABS: African American GFR (CKD) 101.7 (60.0-200.0); Albumin 4.2 g/dL (3.80-4.90); Albumin/Globulin Ratio 1.83 (1.60-3.17); Calcium 9.6 mg/dL (8.7-10.3); Globulin 2.3 g/dL (1.6-3.3); Non-African American GFR(CKD) 87.8 (60.0-200.0); Total Bilirubin 0.6 mg/dL (0.2-1.2); Total Protein 6.5 g/dL (6.2-8.2)
== END | disposition home or self-care (01) ==
LOC: LABWHC1 12:21
PROVIDERS: ATTEND Surgery
DX: K81.0 Acute cholecystitis (principal)
CPT/HCPCS: 36415; 80053

== ENCOUNTER 2019-11-03 11:52 | Day surgery (SDC) | payer MEDICARE ==
[2019-10-30 13:35] VITALS: BMI 30.8
[~2019-11-03 11:52] MED LIST: ACETAMINOPHEN TAB 500 MG TAB PO ONE; DEXAMETHASONE SOD PHOSPHATE 10 MG/ML 1 ML VIAL IV ONE; HEPARIN SODIUM,PORCINE 5,000 UNIT/ML 1 ML VIAL SQ ONE; LACTATED RINGERS 1,000 ML IV SCH; MIDAZOLAM 2 MG/2 ML VIAL IV PRN; ONDANSETRON 4 MG/2 ML VIAL IVP ONE
[2019-11-03 12:22] VITALS: RESP 16
[2019-11-03] MEDS ORDERED: LIDOCAINE 1% (10MG/ML) FOR IV START INTRADERMA ONE (12:35)
[2019-11-03] MEDS ORDERED: MIDAZOLAM 2 MG/2 ML VIAL ONE (12:59)
[2019-11-03] MEDS ORDERED: LIDOCAINE 1% INJ 10MG/ML (20 ML MDV) ONE (12:59)
[2019-11-03] MEDS ORDERED: PROPOFOL 10 MG/ML 20 ML VIAL IV ONE (12:59)
[2019-11-03] MEDS ORDERED: KETOROLAC 15 MG/ML 1 ML VIAL ONE (12:59)
[2019-11-03] MEDS ORDERED: ROCURONIUM BROMIDE 10 MG/ML 5 ML VIAL IV ONE (12:59)
[2019-11-03] MEDS ORDERED: SUCCINYLCHOLINE CHLORIDE 100 MG/5 ML SYR IV ONE (12:59)
[2019-11-03] MEDS ORDERED: fentaNYL (PF) 50 MCG/ML 2 ML AMP ONE (12:59)
[2019-11-03] MEDS ORDERED: NEOSTIGMINE 1 MG/ML 10 ML VIAL ONE (12:59)
[2019-11-03] MEDS ORDERED: GLYCOPYRROLATE 0.2 MG/ML 2 ML VIAL ONE (12:59)
[2019-11-03] MEDS ORDERED: BUPIVACAINE (PF) 0.25% 30 ML VIAL SQ ONE (13:37)
[2019-11-03] MEDS ORDERED: LACTATED RINGERS 1,000 ML IV ONE ×2 (14:15→15:41)
[2019-11-03] MEDS ORDERED: NALOXONE 0.4 MG/ML 1 ML VIAL IV PRN (14:18)
[2019-11-03] MEDS ORDERED: HYDROcodone/APAP 5-325MG 1 EACH TAB PO PRN (14:18)
[2019-11-03] MEDS: HYDROmorphone 0.5 MG/0.5 ML SYRINGE IVP PRN ×5 (14:30→15:00)
--- NOTE | 2019-11-03 14:31 | P.OP ---
Date of Procedure: 11/03/19 Procedure(s) Performed: PREOPERATIVE DIAGNOSIS: Choledocholithiasis with chronic cholecystitis POSTOPERATIVE DIAGNOSIS: Same PROCEDURE: Laparoscopic cholecystectomy SURGEON: Javy EBL: Minimal see anesthesia record ANESTHESIA: Gen. COMPLICATIONS: None OPERATIVE PROCEDURE: The patient was brought and placed on the operating room table in the supine position. The patient was placed under general anesthesia at that time. The abdomen was prepped and draped in the usual sterile fashion. A small vertical infraumbilical incision was made. The fascia was grasped with the Michele forceps. The fascia was retracted anteriorly. The Veress needle was advanced into the peritoneal cavity. The saline drop test was normal. Insufflation took place up to 15 mmHg. A 5 mm optical trocar was advanced and the peritoneal cavity. 2 additional 5 mm trochars were placed in the right upper quadrant under direct visualization. A 12 mm trocar was advanced into the epigastric incision site. The gallbladder was retracted superiorly and laterally. The peritoneum overlying the infundibulum was bluntly dissected. The patient's cystic duct was visualized. The junction between the cystic duct common and hepatic duct was identified. The cystic duct was then divided after placement of 3 12 mm clips on the patient's side and one on the specimen side. The cystic artery was identified and clipped as well. A small vessel was seen along the gallbladder fossa and clipped as well. The gallbladder was then remov ed from the liver bed using electrocautery. The gallbladder was then removed from the epigastric trocar site with an Endo Catch bag. The gallbladder fossa was irrigated with saline. There was no evidence of any bleeding or biliary drainage seen. The fascia at the 12 millimeter site was closed using a Andrae- Wes 0 Vicryl stitch. The trochars were then removed. The skin at all 4 sites was closed using a 4-0 Monocryl stitch. Skin glue was utilized on the incision sites. At the end of this procedure the sponge and needle counts were correct. DISPOSITION: Stable to the recovery room
[2019-11-03 14:33] VITALS: TEMP 96.9
[2019-11-03] MEDS ORDERED: HYDROmorphone 0.5 MG/0.5 ML SYRINGE IVP ONE (15:00)
[2019-11-03 16:19] VITALS: BP 121/50; PULSE 45
== END 2019-11-03 17:02 | disposition home or self-care (01) ==
LOC: OR 11:52
PROVIDERS: ATTEND Surgery
DX: K80.64 Calculus of gallbladder and bile duct with chronic cholecystitis without obstruction (principal); I48.91 Unspecified atrial fibrillation; E66.9 Obesity, unspecified; M19.90 Unspecified osteoarthritis, unspecified site; E78.5 Hyperlipidemia, unspecified; K21.9 Gastro-esophageal reflux disease without esophagitis; Z68.31 Body mass index [BMI] 31.0-31.9, adult; Z98.84 Bariatric surgery status; Z98.890 Other specified postprocedural states; Z90.710 Acquired absence of both cervix and uterus; Z96.641 Presence of right artificial hip joint; Z79.899 Other long term (current) drug therapy; Z79.01 Long term (current) use of anticoagulants; Z87.39 Personal history of other diseases of the musculoskeletal system and connective tissue; Z82.0 Family history of epilepsy and other diseases of the nervous system; Z82.49 Family history of ischemic heart disease and other diseases of the circulatory system
CPT/HCPCS: 47562; 88304; J2250; J1644; J1100; J2710; J0690; J2405; J2001; J3010; J1885; J0330; J2704; J1170

== ENCOUNTER → 2020-06-09 | Outpatient (CLI) | payer MEDICARE ==
--- NOTE | 2020-06-09 12:52 | XR ---
EXAMINATION TYPE: XR cervical spine comp DATE OF EXAM: 06/09/2020 TECHNIQUE: Frontal, lateral, oblique, and open mouth view of the cervical spine are obtained. HISTORY: M47.12 COMPARISON: None FINDINGS: The cervical spine is visualized in its entirety from C1 thru the top of T1 level, there i s grade 1 retrolisthesis C2 on C3. The pre-vertebral soft tissue appears within normal limits. The C1-C2 articulation is within normal limits on the open mouth view. Vertebral body heights are mainta ined. Moderate disc space narrowing greatest posteriorly at C2-C3 level. Moderate to severe spurring and disc space narrowing C4-C5 through C6-C7 levels. Moderate disc space narrowing C7-T1 level. Promi nent left lateral spur C3-C4 level. The oblique images show marginal spurring causing mild to moderat e neural foraminal narrowing right C4-C5 level. Overlying soft tissue is unremarkable. IMPRESSION: As above.
== END | disposition home or self-care (01) ==
LOC: RADXRMAIN 12:09
PROVIDERS: ATTEND Internal Medicine
DX: M48.02 Spinal stenosis, cervical region (principal); M99.71 Connective tissue and disc stenosis of intervertebral foramina of cervical region; M99.72 Connective tissue and disc stenosis of intervertebral foramina of thoracic region; M43.12 Spondylolisthesis, cervical region
CPT/HCPCS: 72050

== ENCOUNTER → 2020-08-02 | Outpatient (CLI) | payer MEDICARE ==
--- NOTE | 2020-08-02 16:11 | XR ---
EXAMINATION TYPE: XR KUB DATE OF EXAM: 08/02/2020 3:49 PM CLINICAL HISTORY: hematuria TECHNIQUE: Single supine KUB image of the abdomen is obtained. COMPARISON: None. FINDINGS: Scattered gas is seen in non-distended small bowel loops. Gas and fecal material is seen in non-distended colon. There is no visceromegaly, pneumoperitoneum, or abnormal calcification apprecia stephan. The lung bases are clear and the osseous structures are intact. Surgical clips are present in t he right upper abdomen. Degenerative and postoperative changes are present in the bones. IMPRESSION: Overall nonobstructive bowel gas pattern.
== END | disposition home or self-care (01) ==
LOC: RADXRMAIN 15:35
PROVIDERS: ATTEND Internal Medicine
DX: N02.9 Recurrent and persistent hematuria with unspecified morphologic changes (principal)
CPT/HCPCS: 74018

== ENCOUNTER 2020-10-02 18:27 | Emergency (ER) | payer MEDICARE ==
[2020-10-02 18:32] VITALS: RESP 16
[2020-10-02] MEDS ORDERED: SODIUM CHLORIDE 0.9% 500 ML 500 ML IV STA (18:49)
[2020-10-02 19:26] LABS: Appearance,Urine Clear (Clear); Basophils % (A) 0 %; Bilirubin,Urine Negative (Negative); Blood,Urine Negative (Negative); Color,Urine Yellow; Eosinophils # (A) 0.1 k/uL (0-0.7); Eosinophils % (A) 1 %; Glucose,Urine (UA) Negative (Negative); HCT 40.8 % (34.0-46.0); HGB 14.1 gm/dL (11.4-16.0); Ketones,Urine Negative (Negative); Leukocyte Esterase,Urine Negative (Negative); Lymphocytes # (A) 1.2 k/uL (1.0-4.8); Lymphocytes % (A) 24 %; MCH 34.4 pg (25.0-35.0); MCHC 34.5 g/dL (31.0-37.0); MCV 99.7 fL (80.0-100.0); Mean Platelet Volume 8.7; Monocytes # (A) 0.3 k/uL (0-1.0); Monocytes % (A) 5 %; Neutrophils # (A) 3.4 k/uL (1.3-7.7); Neutrophils % (A) 68 %; Nitrite,Urine Negative (Negative); Platelet Count 152 k/uL (150-450); Protein,Urine Negative (Negative); RBC 4.09 m/uL (3.80-5.40); RDW 13.5 % (11.5-15.5); Specific Gravity,Urine 1.014 (1.001-1.035); Urobilinogen,Urine <2.0 mg/dL (<2.0)
[2020-10-02 19:40] LABS: INR 1.1 (<1.2); Partial Thromboplastin Time 24.2 sec (22.0-30.0); Prothrombin Time 11.5 sec (9.0-12.0)
--- NOTE | 2020-10-02 19:40 | XR ---
EXAMINATION TYPE: XR KUB DATE OF EXAM: 10/02/2020 COMPARISON: 08/02/2020 HISTORY: Abdominal pain TECHNIQUE: 2 views FINDINGS: The bowel gas pattern is normal. There is no sign of intestinal obstruction or pneumoperito neum. Fecal pattern is normal. There are clips from cholecystectomy. There is degenerative spurring i n the lumbar spine. There is bilateral hip prosthesis. Lung bases are clear. IMPRESSION: Nonacute abdomen. Cholecystectomy noted. No adverse change compared to old exam. Fecal ma terial slightly decreased compared to old exam.
[2020-10-02 19:41] LABS: ALT 162 U/L (4-34); AST 314 U/L (14-36); African American GFR (CKD) >90 (>60 ml/min/1.73 sqM); Albumin 4.3 g/dL (3.5-5.0); Alkaline Phosphatase 151 U/L (38-126); Amylase 60 U/L (30-110); Anion Gap 7 mmol/L; Blood Urea Nitrogen 18 mg/dL (7-17); Calcium 9.5 mg/dL (8.4-10.2); Carbon Dioxide 28 mmol/L (22-30); Chloride 103 mmol/L (98-107); Glucose 107 mg/dL (74-99); Lipase 224 U/L (23-300); Non-African American GFR(CKD) >90 (>60 ml/min/1.73 sqM); Potassium 4.2 mmol/L (3.5-5.1); Sodium 138 mmol/L (137-145); Total Bilirubin 0.5 mg/dL (0.2-1.3); Total Protein 6.9 g/dL (6.3-8.2)
--- NOTE | 2020-10-02 20:50 | US ---
EXAMINATION TYPE: US liver DATE OF EXAM: 10/02/2020 COMPARISON: NONE CLINICAL HISTORY: epi gastric pain, transaminitis. abd pain, second episode in 10 day, cholecystectom y EXAM MEASUREMENTS: Liver Length: 15.5 cm Gallbladder Wall: Surgically absent CBD: 0.7 cm Right Kidney: 9.4 x 4.9 x 5.0 cm Pancreas: bowel gas mostly obscures Liver: intercostal imaging appears wnl Gallbladder: Surgically absent Evidence for sonographic Short's sign: no CBD: wnl Right Kidney: bowel gas obscures portion of renal even after rolling patient, areas seen appear wnl IMPRESSION: No focal liver defect. No dilated ducts.
--- NOTE | 2020-10-02 21:24 | ED ---
Abdominal Pain HPI - General Chief Complaint: Abdominal Pain Stated Complaint: abd pain Time Seen by Provider: 10/02/20 18:34 Source: patient, family, EMS Mode of arrival: EMS Limitations: no limitations - History of Present Illness Initial Comments: Patient is a 70-year-old female presenting to the emergency Department with complaints of sharp epigastric abdominal pain that lasted about 20 minutes just prior to arrival. She states as of now her pain is gone. She does have some mild nausea left. She states she had this same "attack" happened about a week and a half ago. She states it felt the same way. She describes it as a very sharp pain in the epigastric region, feels very crampy. She states it lasted for about 20 minutes and then went away. She recently had her gallbladder removed in October of last year. She denies any recent fevers or chills, no vomiting or diarrhea. Her bowel movements have been regular. She has history of bariatric surgery, cholecystectomy, hysterectomy. She denies any chest pain or shortness of breath. She states sometimes the pain gets so bad that it does feel like it's hard to breathe but she is able to breathe without difficulty. She denies any dysuria or history of kidney stones. She has no further complaints at this time. Upon arrival to the ER her vitals are stable. - Related Data Home Medications Medication Instructions Recorded Confirmed Acetaminophen [Tylenol 8 Hour] 650 mg PO BID PRN 10/22/19 10/30/19 Apixaban [Eliquis] 5 mg PO BID 10/22/19 10/30/19 Cyanocobalamin (Vitamin B-12) 1,000 mcg PO BID 10/22/19 10/30/19 [Vitamin B-12] Omeprazole [PriLOSEC] 20 mg PO BID 10/22/19 10/30/19 Vit C/E/Zn/Coppr/Lutein/Zeaxan 1 cap PO BID 10/22/19 10/30/19 [Preservision Areds 2 Softgel] cycloSPORINE 0.05% OPHTH SOLN 1 drop BOTH EYES BID 10/22/19 10/30/19 [Restasis] traZODone HCL 50 mg PO HS PRN 10/22/19 10/30/19 Atorvastatin [Lipitor] 20 mg PO DAILY 10/30/19 10/30/19 Previous Rx's Medication Instructions Recorded oxyCODONE HCL [OxyIR] 5 mg PO Q6H PRN 3 Days #6 tab 11/03/19 Allergies Allergy/AdvReac Type Severity Reaction Status Date / Time No Known Allergies Allergy Verified 11/03/19 12:21 Review of Systems ROS Statement: Those systems with pertinent positive or pertinent negative responses have been documented in the HPI. ROS Other: All systems not noted in ROS Statement are negative. Past Medical History Past Medical History: Atrial Fibrillation, GERD/Reflux, Hyperlipidemia, Osteoarthritis (OA), Pneumonia Additional Past Medical History / Comment(s): Afib with cardiac ablation/CVN, gallstones, arthritis in multiple joints, insomnia, pneumonia years ago, UTI History of Any Multi-Drug Resistant Organisms: None Reported Past Surgical History: Ablation, Bariatric Surgery, Cardiac Ablation, Cholecystectomy, Hysterectomy, Joint Replacement, Orthopedic Surgery, Tonsillectomy Additional Past Surgical History / Comment(s): Recent R shoulder rotator cuff repair, L shoulder rotator cuff repair, L shoulder fracture with surgery, b ilateral total hip arthroplasties, jaw surgery for bite correction, CVN, gastric bypass, EGD, colonoscopy, bilateral cataract removals/lens implants Past Anesthesia/Blood Transfusion Reactions: No Reported Reaction Past Psychological History: No Psychological Hx Reported Smoking Status: Never smoker Past Alcohol Use History: None Reported Past Drug Use History: None Reported - Past Family History Father Family Medical History: Congestive Heart Failure (CHF), Musculoskeletal Disorder, Neurologic Disorder Additional Family Medical History / Comment(s): Father had parkinsons. Mother Family Medical History: Coronary Artery Disease (CAD), Hyperlipidemia, Hyper tension Brother(s) Family Medical History: Myocardial Infarction (VT) Sister(s) Family Medical History: No Reported History Daughter(s) Family Medical History: No Reported History Son(s) Family Medical History: No Reported History General Exam - General Exam Comments Initial Comments: GENERAL: Patient is well-developed and well-nourished. Patient is nontoxic and in no acute distress. HEAD: Atraumatic, normocephalic. EYES: Pupils equal round and reactive to light, extraocular movements intact, sclera anicteric, conjunctiva are normal. Eyelids were unremarkable. ENT: Moist mucous membranes. NECK: Normal range of motion, supple without lymphadenopathy or JVD. LUNGS: Unlabored respirations. Breath sounds clear to auscultation bilaterally and equal. No wheezes rales or rhonchi. HEART: Regular rate and rhythm without murmurs, rubs or gallops. ABDOMEN: Soft, nontender, normoactive bowel sounds. No guarding, no rebound. No masses appreciated. : Deferred MUSCULOSKELETAL: Normal extremities with adequate strength and normal range of motion, no pitting or edema. No clubbing or cyanosis. NEUROLOGICAL: Patient is alert and oriented x 3. PSYCH: Normal mood, normal affect. SKIN: Warm, Dry, normal turgor, no rashes or lesions noted. Limitations: no limitations Course Vital Signs 10/02/20 10/02/20 10/02/20 18:29 19:27 20:52 Temperature 97.3 F L Pulse Rate 50 L 54 L Respiratory 16 16 16 Rate Blood Pressure 153/75 160/54 O2 Sat by Pulse 100 100 Oximetry Medical Decision Making - Medical Decision Making Patient is a 70-year-old female here with an acute episode of abdominal pain that lasted about 20 minutes prior to arrival. Upon arrival to our ER, she is symptom-free, she has no abdominal pain, no vomiting, some mild nausea present. Her vitals are stable, she has no abdominal pain on palpation. He had cholecystectomy last year, also history of gastric bypass and hysterectomy. She's been having regular bowel movements. Labs show a normal white count, stable hemoglobin. Transaminitis, bilirubin is normal at 0.5, lactic acid is normal, lipase is normal. Urine shows no evidence of infection. Hepatitis panel was added, this is pending. I did do an ultrasound of the liver which showed no acute abnormalities, no common bile duct dilation. Patient has remained symptom free in the ER. I recommended following up with her PCP to have liver enzymes rechecked in one week. She is agreeable to this plan of care and is stable for discharge. Return parameters were discussed with her and she verbalized understanding. Case discussed with Dr. Haque. - Lab Data Result diagrams: 10/02/20 19:14 10/02/20 19:14 Lab Results 10/02/20 10/02/20 10/02/20 Range/Units 19:14 19:14 19:14 WBC 5.0 (3.8-10.6) k/uL RBC 4.09 (3.80-5.40) m/uL Hgb 14.1 (11.4-16.0) gm/dL Hct 40.8 (34.0-46.0) % MCV 99.7 (80.0-100.0) fL MCH 34.4 (25.0-35.0) pg MCHC 34.5 (31.0-37.0) g/dL RDW 13.5 (11.5-15.5) % Plt Count 152 (150-450) k/uL MPV 8.7 Neutrophils % 68 % Lymphocytes % 24 % Monocytes % 5 % Eosinophils % 1 % Basophils % 0 % Neutrophils # 3.4 (1.3-7.7) k/uL Lymphocytes # 1.2 (1.0-4.8) k/uL Monocytes # 0.3 (0-1.0) k/uL Eosinophils # 0.1 (0-0.7) k/uL Basophils # 0.0 (0-0.2) k/uL PT 11.5 (9.0-12.0) sec INR 1.1 (<1.2) APTT 24.2 (22.0-30.0) sec Sodium (137-145) mmol/L Potassium (3.5-5.1) mmol/L Chloride (98-107) mmol/L Carbon Dioxide (22-30) mmol/L Anion Gap mmol/L BUN (7-17) mg/dL Creatinine (0.52-1.04) mg/dL Est GFR (CKD-EPI)AfAm (>60 ml/min/1.73 sqM) Est GFR (CKD-EPI)NonAf (>60 ml/min/1.73 sqM) Glucose (74-99) mg/dL Plasma Lactic Acid Av (0.7-2.0) mmol/L Calcium (8.4-10.2) mg/dL Total Bilirubin (0.2-1.3) mg/dL AST (14-36) U/L ALT (4-34) U/L Alkaline Phosphatase (38-126) U/L Total Protein (6.3-8.2) g/dL Albumin (3.5-5.0) g/dL Amylase (30-110) U/L Lipase (23-300) U/L Urine Color Yellow Urine Appearance Clear (Clear) Urine pH 5.0 (5.0-8.0) Ur Specific [place] 1.014 (1.001-1.035) Urine Protein Negative (Negative) Urine Glucose (UA) Negative (Negative) Urine Ketones Negative (Negative) Urine Blood Negative (Negative) Urine Nitrite Negative (Negative) Urine Bilirubin Negative (Negative) Urine Urobilinogen <2.0 (<2.0) mg/dL Ur Leukocyte Esterase Negative (Negative) 10/02/20 10/02/20 Range/Units 19:14 19:14 WBC (3.8-10.6) k/uL RBC (3.80-5.40) m/uL Hgb (11.4-16.0) gm/dL Hct (34.0-46.0) % MCV (80.0-100.0) fL MCH (25.0-35.0) pg MCHC (31.0-37.0) g/dL RDW (11.5-15.5) % Plt Count (150-450) k/uL MPV Neutrophils % % Lymphocytes % % Monocytes % % Eosinophils % % Basophils % % Neutrophils # (1.3-7.7) k/uL Lymphocytes # (1.0-4.8) k/uL Monocytes # (0-1.0) k/uL Eosinophils # (0-0.7) k/uL Basophils # (0-0.2) k/uL PT (9.0-12.0) sec INR (<1.2) APTT (22.0-30.0) sec Sodium 138 (137-145) mmol/L Potassium 4.2 (3.5-5.1) mmol/L Chloride 103 (98-107) mmol/L Carbon Dioxide 28 (22-30) mmol/L Anion Gap 7 mmol/L BUN 18 H (7-17) mg/dL Creatinine 0.54 (0.52-1.04) mg/dL Est GFR (CKD-EPI)AfAm >90 (>60 ml/min/1.73 sqM) Est GFR (CKD-EPI)NonAf >90 (>60 ml/min/1.73 sqM) Glucose 107 H (74-99) mg/dL Plasma Lactic Acid Av 0.5 L (0.7-2.0) mmol/L Calcium 9.5 (8.4-10.2) mg/dL Total Bilirubin 0.5 (0.2-1.3) mg/dL AST 314 H (14-36) U/L ALT 162 H (4-34) U/L Alkaline Phosphatase 151 H (38-126) U/L Total Protein 6.9 (6.3-8.2) g/dL Albumin 4.3 (3.5-5.0) g/dL Amylase 60 (30-110) U/L Lipase 224 (23-300) U/L Urine Color Urine Appearance (Clear) Urine pH (5.0-8.0) Ur Specific [place] (1.001-1.035) Urine Protein (Negative) Urine Glucose (UA) (Negative) Urine Ketones (Negative) Urine Blood (Negative) Urine Nitrite (Negative) Urine Bilirubin (Negative) Urine Urobilinogen (<2.0) mg/dL Ur Leukocyte Esterase (Negative) Disposition Clinical Impression: Abdominal pain, Transaminitis Disposition: HOME SELF-CARE Condition: Stable Instructions (If sedation given, give patient instructions): Abdominal Pain (ED) Additional Instructions: Please return to the Emergency Department if symptoms worsen or any other concerns. Recommend following up with your PCP in one week to recheck liver enzymes. Is patient prescribed a controlled substance at d/c from ED?: No Referrals: Selma Brody MD [Primary Care Provider] - 1-2 days Time of Disposition: 21:23
[2020-10-02 22:15] VITALS: BP 148/62; PULSE 52; TEMP 98.1
== END 2020-10-02 22:10 | disposition home or self-care (01) ==
LOC: EC 18:27
DX: R10.13 Epigastric pain (principal); R74.01 Elevation of levels of liver transaminase levels; R11.0 Nausea; E78.5 Hyperlipidemia, unspecified; I48.91 Unspecified atrial fibrillation; K21.9 Gastro-esophageal reflux disease without esophagitis; Z79.01 Long term (current) use of anticoagulants; Z90.49 Acquired absence of other specified parts of digestive tract; Z90.710 Acquired absence of both cervix and uterus; Z79.899 Other long term (current) drug therapy
CPT/HCPCS: 36415; 74018; 76705; 80053; 81003; 82150; 83605; 83690; 85025; 85610; 85730; 96360; 99284

== ENCOUNTER → 2023-07-02 | Outpatient (CLI) | payer MEDICARE ==
[2023-07-02 18:40] LABS: HCT 43.9 % (37.2-46.3); HGB 13.6 g/dL (12.0-15.0); MCH 33.3 pg (27.0-32.0); MCV 107.6 FL (80.0-97.0); Mean Platelet Volume 12.2 FL (9.5-12.2); NRBC Per 100 WBC 0 X 10*3/uL (0.00-0.01); Platelet Count 180 X 10*3/uL (140-440); RBC 4.08 X 10*6/uL (4.10-5.20); RDW 12.7 % (11.5-14.5)
[2023-07-02 21:24] LABS: ALT 29 U/L (8-44); AST 41 U/L (13-35); Albumin 4.5 g/dL (3.8-4.9); Albumin/Globulin Ratio 1.88 Ratio (1.60-3.17); Alkaline Phosphatase 68 U/L (41-126); Calcium 9.7 mg/dL (8.7-10.3); Carbon Dioxide 27.3 mmol/L (21.6-31.8); Chloride 102 mmol/L (96-109); Globulin 2.4 g/dL (1.6-3.3); Glucose 88 mg/dL (70-110); Potassium 4.1 mmol/L (3.5-5.5); Sodium 143 mmol/L (135-145); Total Bilirubin 0.6 mg/dL (0.3-1.2); Total Protein 6.9 g/dL (6.2-8.2)
== END | disposition home or self-care (01) ==
LOC: LABWHC1 09:27
PROVIDERS: ATTEND Internal Medicine Interventional Cardiology
DX: I48.0 Paroxysmal atrial fibrillation (principal); R00.2 Palpitations
CPT/HCPCS: 36415; 80053; 84443; 85027

== ENCOUNTER 2023-10-17 05:57 | Day surgery (SDC) | payer MEDICARE ==
[2023-10-15 13:38] VITALS: BMI 30.3
[2023-10-17 06:39] VITALS: TEMP 97
[2023-10-17] MEDS: SODIUM CHLORIDE 0.9% 1,000 ML IV SCH (06:45)
[2023-10-17] MEDS: IV FLUID CONTINUATION 1,000 ML IV ONE (06:46)
[2023-10-17] MEDS ORDERED: LIDOCAINE 1% INJ 10MG/ML (20 ML MDV) ONE (07:17)
[2023-10-17] MEDS ORDERED: PROPOFOL 10 MG/ML 20 ML VIAL IV ONE (07:17)
[2023-10-17] MEDS ORDERED: BENZOCAINE SPRAY 1 CAN MUCOUS MEM PRN (07:19)
--- NOTE | 2023-10-17 07:41 | P.PCN ---
Date of Procedure: 10/17/23 Description of Procedure: Indication: Atrial flutter Procedure Description: After explaining the procedure to the patient, it's risk and complications, blood pressure, heart rate and O2 saturation were monitored. The throat was sprayed with Cetacaine. Patient received sedation per anesthesia department. The probe was introduced into the esophagus without difficulty. Images were obtained. Following that, the probe was removed. There was no immediate complication. Findings: Biatrial enlargement was noted, left atrial appendage is normal. Spontaneous contrast was noted. The overall left ventricular systolic function is moderately impaired, ejection fraction 35 to 40% with global hypokinesis. The aortic valve revealed mild fibrocalcific changes of the cusps with preserved opening, mitral valve appears to be normal. Tricuspid and pulmonic valve are normal. Descending thoracic aorta appears to be normal. No pericardial effusion was noted. Contrast bubble study revealed no shunting across the interatrial septum. Doppler: Pulse wave and color Doppler were obtained, and revealed mild mitral and tricuspid regurgitation, there was no shunting across the interatrial septum. Conclusion: 1. Biatrial enlargement with normal appearance of the left atrial appendage with spontaneous contrast 2. Moderate global hypokinesis of the left ventricle 3. Mild mitral and tricuspid regurgitation 4. No pericardial effusion 5. No shunting across the interatrial septum Cardioversion: After obtaining DARIAN and sedated state synchronized biphasic cardioversion using 150 J was performed with catholic of sinus mechanism, there was no immediate complications.
[2023-10-17 07:56] VITALS: RESP 16
[2023-10-17 08:39] VITALS: BP 106/72; PULSE 57
[2023-10-17] MEDS ORDERED: APIXABAN 5 MG TAB PO SCH (09:00)
[2023-10-17] MEDS ORDERED: traZODone HCL 50 MG TAB PO SCH (21:00)
[2023-10-17] MEDS ORDERED: ATORVASTATIN 20 MG TAB PO SCH (21:00)
== END 2023-10-17 08:57 | disposition home or self-care (01) ==
LOC: OR 05:57
PROVIDERS: ATTEND Internal Medicine Interventional Cardiology
DX: I08.1 Rheumatic disorders of both mitral and tricuspid valves (principal); I48.92 Unspecified atrial flutter; I48.0 Paroxysmal atrial fibrillation; M19.90 Unspecified osteoarthritis, unspecified site; E78.5 Hyperlipidemia, unspecified; Z79.01 Long term (current) use of anticoagulants; Z79.899 Other long term (current) drug therapy
CPT/HCPCS: 92960; 93312; 93320; 93325

== ENCOUNTER → 2024-06-29 | Outpatient (CLI) | payer MEDICARE ==
[2024-06-29 18:58] LABS: ALT 39 U/L (8-44); AST 47 U/L (13-35); Albumin 4.4 g/dL (3.8-4.9); Albumin/Globulin Ratio 1.63 Ratio (1.60-3.17); Alkaline Phosphatase 89 U/L (41-126); BUN/Creat Ratio 18.29 Ratio (12.00-20.00); Blood Urea Nitrogen 12.8 mg/dL (9.0-27.0); Calcium 9.1 mg/dL (8.7-10.3); Carbon Dioxide 28.3 mmol/L (21.6-31.8); Chloride 105 mmol/L (96-109); Globulin 2.7 g/dL (1.6-3.3); Glucose 68 mg/dL (70-110); Potassium 4.5 mmol/L (3.5-5.5); Sodium 142 mmol/L (135-145); Total Bilirubin 0.5 mg/dL (0.3-1.2); Total Protein 7.1 g/dL (6.2-8.2)
== END | disposition home or self-care (01) ==
LOC: LABWHC1 16:02
PROVIDERS: ATTEND Internal Medicine Interventional Cardiology
DX: I48.0 Paroxysmal atrial fibrillation (principal)
CPT/HCPCS: 36415; 80053; 84443

== ENCOUNTER → 2024-07-27 | Outpatient (CLI) | payer MEDICARE ==
[2024-07-27 10:12] LABS: Basophils # (A) 0.02 X 10*3/uL (0.00-0.10); Basophils % (A) 0.4 %; Eosinophils # (A) 0.09 X 10*3/uL (0.04-0.35); Eosinophils % (A) 1.8 %; HCT 39.4 % (37.2-46.3); HGB 11.7 g/dL (12.0-15.0); Lymphocytes # (A) 1.67 X 10*3/uL (0.90-5.00); Lymphocytes % (A) 32.7 %; MCH 29.6 pg (27.0-32.0); MCHC 29.7 g/dL (32.0-37.0); MCV 99.7 FL (80.0-97.0); Mean Platelet Volume 12.1 FL (9.5-12.2); Monocytes % (A) 7.8 %; NRBC Per 100 WBC 0 X 10*3/uL (0.00-0.01); Neutrophils # (A) 2.91 X 10*3/uL (1.80-7.70); Neutrophils % (A) 57.1 %; Platelet Count 150 X 10*3/uL (140-440); RBC 3.95 X 10*6/uL (4.10-5.20)
[2024-07-27 10:44] LABS: % Iron Saturation 12.63 (12.00-45.00); ALT 52 U/L (8-44); AST 57 U/L (13-35); Albumin 4.2 g/dL (3.8-4.9); Albumin/Globulin Ratio 1.68 Ratio (1.60-3.17); Alkaline Phosphatase 90 U/L (41-126); Blood Urea Nitrogen 12.6 mg/dL (9.0-27.0); Calcium 8.9 mg/dL (8.7-10.3); Carbon Dioxide 28.3 mmol/L (21.6-31.8); Chloride 105 mmol/L (96-109); Chol/HDL Ratio 2.27 Ratio; Globulin 2.5 g/dL (1.6-3.3); Glucose 91 mg/dL (70-110); Iron 37 UG/DL (50-170); LDL Cholesterol,Calculated 67.2 mg/dL (0.0-131.0); Magnesium 2.1 mg/dL (1.5-2.4); Phosphorus 4.2 mg/dL (2.4-5.1); Potassium 4.5 mmol/L (3.5-5.5); Sodium 143 mmol/L (135-145); Total Bilirubin 0.6 mg/dL (0.3-1.2); Total Iron Binding Capacity 293 UG/DL (228-460); Total Protein 6.7 g/dL (6.2-8.2); VLDL Calculation 13.46 mg/dL (5.00-40.00)
[2024-07-27 10:45] LABS: Ferritin 26.4 ng/mL (10.0-291.0); T4, Free (Free Thyroxine) 1.21 ng/dL (0.80-1.80)
== END | disposition home or self-care (01) ==
LOC: LABWHC1 07:08
PROVIDERS: ATTEND Internal Medicine
DX: I48.91 Unspecified atrial fibrillation (principal); E78.5 Hyperlipidemia, unspecified; E03.8 Other specified hypothyroidism; Z98.84 Bariatric surgery status
CPT/HCPCS: 36415; 80053; 80061; 82306; 82607; 82728; 82746; 83540; 83550; 83735; 84100; 84439; 84443; 84630; 85025

== ENCOUNTER → 2024-08-10 | Outpatient (CLI) | payer MEDICARE ==
--- NOTE | 2024-08-10 09:18 | US ---
EXAMINATION TYPE: US liver DATE OF EXAM: 08/10/2024 COMPARISON: US 10/02/2020 CLINICAL INDICATION: Female, 74 years old with history of R74.01 ELEVATION OF LEVELS OF LIVER TRANSAM INASE L; Elevated liver enzymes, history cholecystectomy. Patient states she has pain in the RUQ when pushing on it. TECHNIQUE: Grayscale and color Doppler imaging of the right upper quadrant. FINDINGS: EXAM MEASUREMENTS: Liver Length: 16.9 cm Gallbladder Wall: Surgically absent CBD: 0.6 cm, color Doppler imaging was utilized to isolate the common bile duct for measurement. Right Kidney: 9.4 x 4.5 x 5.1 cm JEWEL HOLE GAUGER NOTES: Exam limited by overlying bowel gas, patient body habitus, and intercostal scannin g. Pancreas: portions visualized wnl, tail obscured by overlying bowel gas Liver: Mildly Enlarged Gallbladder: Surgically absent Evidence for sonographic Short's sign: No CBD: wnl for post cholecystectomy status Right Kidney: No hydronephrosis or masses seen IMPRESSION: Mild hepatomegaly [facility], , 08/10/2024 9:16 AM
== END | disposition home or self-care (01) ==
LOC: RADUSWWP 08:19
PROVIDERS: ATTEND Internal Medicine
DX: R16.0 Hepatomegaly, not elsewhere classified (principal); R74.01 Elevation of levels of liver transaminase levels; Z90.49 Acquired absence of other specified parts of digestive tract
CPT/HCPCS: 76705

== ENCOUNTER → 2024-09-02 | Outpatient (CLI) | payer MEDICARE ==
[2024-09-02 12:30] LABS: African American GFR (CKD) >90 (>60 ml/min/1.73 sqM); Blood Urea Nitrogen 15 mg/dL (7-17); Non-African American GFR(CKD) 88 (>60 ml/min/1.73 sqM)
--- NOTE | 2024-09-02 14:04 | CT ---
EXAMINATION TYPE: CT abdomen pelvis w con DATE OF EXAM: 09/02/2024 COMPARISON: None CLINICAL INDICATION: Female, 74 years old with history of R19.00 abdominal wall bulge; PHH, possible hernia TECHNIQUE: Performed with Oral Contrast and with IV Contrast, patient injected with 100 ml mL of Isovue 300. CT DLP: 1108.[address] CTDI: mGy Automated exposure control for dose reduction was used. FINDINGS: There are mild chronic interstitial changes in the lung bases. There are postsurgical changes involv ing the stomach. There is surgical absence of the gallbladder. There is no biliary ductal dilatation. There is no focal mass or organomegaly involving the liver, pancreas, spleen or adrenal glands. There is no solid renal mass or hydronephrosis and there is homogeneous contrast enhancement of the r enal parenchyma. The right kidney is malrotated. The caliber the abdominal aorta is normal is no retroperitoneal adenopathy or hemorrhage. The bowel loops are normal in caliber and there is no evidence of dilatation or obstruction. No infla mmatory changes are identified in the bowel wall or mesentery. There is no free intraperitoneal air or fluid. No pelvic mass, free fluid, abscess or adenopathy. There are surgical absence of uterus. There is marked degenerative disc disease in the lumbar spine.. IMPRESSION: No acute changes within the abdomen or pelvis. There is no evidence of abdominal mass or hernia. [facility], , 09/02/2024 2:02 PM
== END | disposition home or self-care (01) ==
LOC: RADCTMAIN 11:45
PROVIDERS: ATTEND Internal Medicine
DX: R19.00 Intra-abdominal and pelvic swelling, mass and lump, unspecified site (principal)
CPT/HCPCS: 82565; 84520; 74177; 36415; Q9967